=== PATIENT | female | born 1995 | race African-American/Black ===

== ENCOUNTER 2016-11-29 22:38 | Emergency (ER) | payer BC ==
[~2016-11-29] VITALS: Ht 165.1 cm; Wt 54.4 kg
--- NOTE | ~2016-11-29 | EKG ---
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
[~2016-11-29 22:38] MED LIST: BCP; ONDANSETRON HCL4 M2 PO
[2016-11-29] MEDS ORDERED: BIRTH CONTROL (22:55)
[2016-11-29 23:28] LABS: ABSOLUTE NEUTROPHILS 2.7 thou/uL (1.4-8.2); BASOPHILS 0.6 % (0.0-2.0); EOSINOPHILS 4.6 % (0.0-3.0); HEMATOCRIT 36.2 % (37.0-47.0); HEMOGLOBIN 12.3 gm/dL (12.0-15.0); LYMPHOCYTES 29.1 % (24.0-44.0); MCH 29.5 pg (26.0-34.0); MCHC 33.9 g/dL (28.0-37.0); MONOCYTES 6.8 % (1.0-8.0); PLATELET COUNT 293 thou/uL (150-400); POLYS 58.9 % (36.0-66.0); RBC 4.16 mil/uL (4.20-5.00); RDW 13.7 % (10.5-14.5); WBC 4.6 thou/uL (4.0-11.0)
[2016-11-29 23:29] LABS: MANUAL DIFF NO
[2016-11-29 23:31] LABS: CALCIUM 9.4 mg/dL (8.5-10.1); CREATININE 0.9 mg/dL (0.6-1.0); POTASSIUM 3.8 mmol/L (3.5-5.1)
[2016-11-30] MEDS ORDERED: ZPAK PO (01:28)
[2016-11-30] MEDS ORDERED: NAPROSYN500 MG PO (01:28)
[2016-11-30] MEDS ORDERED: VENTOLIN HFA 1818 GM INH (01:28)
[2016-11-30 01:42] VITALS: BP 134/80
== END 2016-11-30 01:44 | disposition home or self-care (01) ==
LOC: ER 22:38
PROVIDERS: Emergency Medicine
DX: R06.02 Shortness of breath (principal); R07.9 Chest pain, unspecified; Z88.8 Allergy status to other drugs, medicaments and biological substances